=== PATIENT | female | born 1945 | race Hispanic/Latino ===

== ENCOUNTER 2020-10-16 22:02 | Inpatient (IN) | payer OTHER ==
--- OUTSIDE RECORDS SUMMARY | 2020-10-16 22:05 | XMS REPORT | Continuity of Care Document ---
:1945 Author Organization [facility] t Address [address] [place] [place] [address] Care Team Providers Name Role Phone Alis Betts Attending Clinician Unavailable Jarrod CASON, L Attending Clinician Regino Betts Admitting Clinician Unavailable Payers Payer Name Policy Type Policy Number Effective Date Expiration Date S ource Problems This patient has no known problems. Allergies, Adverse Reactions, Alerts Allergy Allergy Status Severity Reaction(s) Onset Inactive Treating Comm ents Source Name Type Date Date Clinician No Known DA Active U 2018-03 [facility] Allergie 05-06 [facility] 00:00: [address] Medications This patient has no known medications. Procedures This patient has no known procedures. Encounters Start End Encounter Admission Attending Care Care Encounter Source Date/Time Date/Time Type Type Clinicians Facility Department ID 2020-09-13 2020-09-13 Outpatient NATHANIEL Betts HUSSEIN DAVILA [id number] [facility] 12:56:00 12:56:00 Alis [id number] [facility] 2019-10-26 2019-10-26 Office EDWIN Garay [phone] [id number] 12:43:36 13:33:[address] [facility] Dialogic [id number] Surgical [id number] Specialti [id number] es [address] [place] Results Test Description Test Time Test Comments Results Result [facility] e Comments - US BRST W AX 2020-09-13 COMP BI 19:03:00 [facility] 1945 Sex: F [place]: [address]: PRE Name: BRANDY MONREAL [facility] : 1945 Age/S: 75/F [address] [facility] Unit #: [id number] Loc: VR.[place], [place] [address] Phys: Alis Betts MD Acct: [id number] Dis Date: Status: PRE CLI PHONE #: [phone] Exam Date: 09/13/2020917 FAX #: [phone] Reason: ABN MAMMO EXAMS: CPT CODE: [id number] [place] [address] - MAMMO DIAG BUTCH CAD BI, - US BRST W AX COMP BI HISTORY: 75-year-old female with recent screening mammogram demonstrating bilateral parenchymal asymmetry. Additional imaging requested.. COMPARISON: April 11, 2020; June 18, 2018; February 08, 2015. TECHNIQUE: Digital 2D and 3-D tomosynthesis projections were obtained. Postprocessing computer aided detection was utilized (enhanced V preview). Bilateral breast ultrasound was performed. FINDINGS : Breast density : The breast parenchyma is heterogeneously dense, which may obscure detection of small masses mammographically. Spot compression views of the left breast in the CC and MLO projections demonstrate normal parenchymal disc tissue with no discrete mass lesion. There is no suspicious microcalcifications. Spot compression views of the retroareolar region of the right breast demonstrate a partially circumscribed 8 mm ovoid mass. There is no associated architectural distortion or microcalcifications. Right breast ultrasound: There is normal parenchymal tissue with no architectural distortion or skin thickening. Within the right breast at the 12 o'clock position is a 0.3 x 0.2 x 0.4 cm cyst, 3 cm from the nipple. At the 11 o'clock position within the right breast is a 0.7 x 0.6 x 0.7 cm cyst, 2 cm from the nipple (likely correlating with the mammographic abnormality). There is no suspicious solid mass lesion. Fatty replaced lymph node is seen within the axilla. Left breast ultrasound: There is normal parenchymal tissue with no architectural distortion or skin thickening. No suspicious solid or cystic mass lesion is seen. There is no significant axillary adenopathy. Mildly prominent duct is noted in the retroareolar region. IMPRESSION: Heterogeneously dense breasts with benign appearing right breast cysts. The nodular asymmetries seen within the left breast likely represents summation of tissue. No mammographic or sonographic evidence of malignancy. Recommend continued annual screening mammography. ACR BI-RADS CATEGORY 2: BENIGN FINDINGS PAGE 1 Signed Report (CONTINUED) [place]: [facility] St: PRE Name: BRANDY MONREAL [facility] : 1945 Age/S: 75/F [address] [facility] Unit #: [id number] Loc: [place], [place] [address] Phys: Alis Betts MD Acct: [id number] Dis Date: Status: PRE CLI PHONE #: [phone] Exam Date: 09/13/2020917 FAX #: [phone] Reason: ABN MAMMO EXAMS: CPT CODE: [id number] [place] [address] <Continued> RECOMMENDATION: Recommend annual screening mammography. [facility] Accreditation FDA Certified Board Certified Radiologists (ARRT) Registered Mammography Technologists NOTE: The patient will receive a written notice about the results of this study and will also receive in writing a separate letter reminding the patient when the next mammography should be scheduled. 1. A negative x-ray report should not delay biopsy if a dominant or clinically suspicious mass is present. 4 to 8% of cancers are not identified by x-ray. 2. A negative report may reinforce clinical impression. 3. Adenosis and dense breast may obscure an underlying neoplasm. 4. False positive results average 6 to 10%. 5. Patients who have dense breasts and other risk factors for breast cancer may benefit from supplemental screening test that can be suggested by your ordering physician (including breast ultrasound and MRI). FO R INTERNAL CODING PURPOSES ONLY RESULT CODE: 2 FOLLOW UP: F at 1903 Reported and signed by: AYDEN LAZAR MD PAGE 2 Signed Report (CONTINUED) [place]: [address]: PRE [facility] 1945 Age/S: 75/F [address] [place] Unit #: [id number] Loc: [place] [address] Phys: Alis Betts MD Acct: [id number] Dis Date: Status: PRE CLI PHONE #: [phone] Exam Date: 09/13/2020917 FAX #: [phone] Reason: ABN MAMMO EXAMS: CPT CODE: [id number] [place] [address] <Continued> Facility ACR Accreditation for Ultrasound - April 2011 CC: Alpesh Zuleta Technologist: Kimberly Ross RT(R)RDMS,RVT Transcribed Date/Time/By: 09/13/2020 (1902) : By: [email or web address] Orig Print D/T: S: 09/13/2020 (1906) PAGE 3 Signed Report - MAMMO DIAG BUTCH 2020-09-13 CAD BI 19:03:00 [facility] : 1945 Sex: F FAX: Alis Moreno [phone] [place]: [address]: PRE Name: BRANDY MONREAL [facility] : 1945 Age/S: 75/F [address] [facility] Unit #: [id number] [place] [address] Phys: Alis Betts MD Acct: [id number] Dis Date: Status: PRE CLI PHONE #: [phone] Exam Date: 09/13/2020829 FAX #: [phone] Reason: ABN MAMMO EXAMS: CPT CODE: [id number] [place] [address] - MAMMO DIAG BUTCH CAD BI, - US BRST W AX COMP BI HISTORY: 75-year-old female with recent screening mammogram demonstrating bilateral parenchymal asymmetry. Additional imaging requested.. COMPARISON: April 11, 2020; June 18, 2018; February 08, 2015. TECHNIQUE: Digital 2D and 3-D tomosynthesis projections were obtained. Postprocessing computer aided detection was utilized (enhanced V preview). Bilateral breast ultrasound was performed. FINDINGS : Breast density : The breast parenchyma is heterogeneously dense, which may obscure detection of small masses mammographically. Spot compression views of the left breast in the CC and MLO projections demonstrate normal parenchymal disc tissue with no discrete mass lesion. There is no suspicious microcalcifications. Spot compression views of the retroareolar region of the right breast demonstrate a partially circumscribed 8 mm ovoid mass. There is no associated architectural distortion or microcalcifications. Right breast ultrasound: There is normal parenchymal tissue with no architectural distortion or skin thickening. Within the right breast at the 12 o'clock position is a 0.3 x 0.2 x 0.4 cm cyst, 3 cm from the nipple. At the 11 o'clock position within the right breast is a 0.7 x 0.6 x 0.7 cm cyst, 2 cm from the nipple (likely correlating with the mammographic abnormality). There is no suspicious solid mass lesion. Fatty replaced lymph node is seen within the axilla. Left breast ultrasound: There is normal parenchymal tissue with no architectural distortion or skin thickening. No suspicious solid or cystic mass lesion is seen. There is no significant axillary adenopathy. Mildly prominent duct is noted in the retroareolar region. IMPRESSION: Heterogeneously dense breasts with benign appearing right breast cysts. The nodular asymmetries seen within the left breast likely represents summation of tissue. No mammographic or sonographic evidence of malignancy. Recommend continued annual screening mammography. ACR BI-RADS CATEGORY 2: BENIGN FINDINGS PAGE 1 Signed Report (CONTINUED) FAX: Alis Moreno [phone] [place]: [address]: PRE Name: BRANDY MONREAL [facility] : 1945 Age/S: 75/F [address] [facility] Unit #: [id number] Loc: [place] [address] Phys: Alis Betts MD Acct: [id number] Dis Date: Status: PRE CLI PHONE #: [phone] Exam Date: 09/13/2020829 FAX #: [phone] Reason: ABN MAMMO EXAMS: CPT CODE: [id number] [place] [address] <Continued> RECOMMENDATION: Recommend annual screening mammography. [facility] Accreditation FDA Certified Board Certified Radiologists (ARRT) Registered Mammography Technologists NOTE: The patient will receive a written notice about the results of this study and will also receive in writing a separate letter reminding the patient when the next mammography should be scheduled. 1. A negative x-ray report should not delay biopsy if a dominant or clinically suspicious mass is present. 4 to 8% of cancers are not identified by x-ray. 2. A negative report may reinforce clinical impression. 3. Adenosis and dense breast may obscure an underlying neoplasm. 4. False positive results average 6 to 10%. 5. Patients who have dense breasts and other risk factors for breast cancer may benefit from supplemental screening test that can be suggested by your ordering physician (including breast ultrasound and MRI). FO R INTERNAL CODING PURPOSES ONLY RESULT CODE: 2 FOLLOW UP: F at 1903 Reported and signed by: AYDEN LAZAR MD CC: Alpesh Zuleta Technologist: Ila LIMA(Roland)(M)(ARRT) Transcribed Date/Time/By: 09/13/2020 (1902) :[email or web address] Orig Print D/T: S: 09/13/2020 (1906) PAGE 2 Signed Report - XR CHEST 2 V 2019-03-05 FAX: Michelle 17:52:00 Hunter Noel [phone] [place]: [address]: REG FAX: Alis Moreno [phone] Name: BRANDY MONREAL [facility] : 1945 Age/S: 74/F [address] [facility] Unit #: [id number] Loc: [place], [place] [address] Phys: Hunter Noel DO Acct: [id number] Dis Date: Status: REG ER PHONE #: [phone] Exam Date: 03/05/2019 1745 FAX #: [phone] Reason: pain s/p fall EXAMS: CPT CODE: [id number] XR CHEST 2 V 07489 - XR CHEST 2 V PROVIDED REASON FOR EXAM: pain s/p fall COMPARISON: None available. FINDINGS: Lungs are clear of focal consolidation. Cardiac silhouette is unremarkable . Pulmonary vasculature is unremarkable . Mildly displaced right fifth through seventh rib fractures. IMPRESSION: No acute cardiopulmonary process. Mildly displaced right third through seventh rib fractures. No pneumothorax. Location: V20 at 1752 Reported and signed by: LUZ QUIÑONEZ MD CC: Hunter Noel DO; Alpesh Zuleta Technologist: Tsering Ochoa, RT(R)(ARRT) Transcribed Date/Time/By: 03/05/2019 (1751) :[email or web address] Orig Print D/T: S: 03/05/2019 (1754) Automated exposure control, iterative reconstruction technique, and/oradjustment of mA and/or kV according to patient's size was utilizedfor optimum radiation dose reduction. PAGE 1 Signed Report - XR RIBS UNI 2 V 2019-03-05 FAX: Mihcelle RT 17:51:00 Hunter Noel [phone] Cam[place]: ER St: REG FAX: Alis Moreno [phone] Name: MONREALBRANDY RENE [facility] : 1945 Age/S: 74/F [address] [facility] Unit #: [id number] Loc: [place], [place] [address] Phys: Hunter Noel DO Acct: [id number] Dis Date: Status: REG ER PHONE #: [phone] Exam Date: 03/05/2019 1745 FAX #: [phone] Reason: pain s/p fall EXAMS: CPT CODE: [id number] XR RIBS UNI 2 [place] [address] - XR RIBS UNI 2 V RT PROVIDED REASON FOR EXAM: pain s/p fall Comparison: None available. FINDINGS: Mildly displaced right fifth through seventh rib fractures. No pneumothorax.. Regional soft tissues are unremarkable. IMPRESSION: Mildly displaced right fifth through seventh rib fractures. Location: V20 at 1751 Reported and signed by: LUZ QUIÑONEZ MD CC: Hunter Noel DO; Alpesh Zuleta Technologist: Tsering Ochoa, RT(R)(ARRT) Transcribed Date/Time/By: 03/05/2019 (1750) :[email or web address] Orig Print D/T: S: 03/05/2019 (1754) Automated exposure control, iterative reconstruction technique, and/oradjustment of mA and/or kV according to patient's size was utilizedfor optimum radiation dose reduction. PAGE 1 Signed Report - MAMMO BUTCH SCR 2018-06-24 FAX: Y CAD BI 14:05:00 Alis Betts [phone] Cam[place]: [address] St: DEP Name: BRANDY MONREAL [facility] : 1945 Age/S: 73/F [address] [facility] Unit #: [id number] Loc: [place] [address] Phys: Alis Betts MD Acct: [id number] Dis Date: Status: DEP CLI PHONE #: [phone] Exam Date: 06/18/201857 FAX #: [phone] Reason: SCREENING EXAMS: CPT CODE: [id number] [place] [address] Location C3 PROCEDURE: BILATERAL SCREENING DIGITAL MAMMOGRAM with CAD/TOMOSYNTHESIS HISTORY: Annual screening COMPARISONS: Mammograms dated 02/08/2015 TECHNIQUE: CC and MLO 3-D tomosynthesis views with Synthetic CC and MLO views. Enhanced V-Preview (Computer Aided Detection) was utilized. FINDINGS: Parenchyma: There are scattered areas of fibroglandular density No evidence of new dominant mass, asymmetry, architectural distortion or suspicious microcalcification. Right subareolar circumscribed mass is stable since 2015 exam, benign. Tiny hyalinized fibroadenoma, upper left breast. CONCLUSION: No mammographic evidence of malignancy in either breast. BIRADS Category 2: Benign RECOMMENDATIONS: Annual screening mammogram recommended * A negative breast imaging report should not delay biopsy if a clinically suspicious mass is present. * The patient was provided with a copy of this report in lay terminology. FO R INTERNAL CODING PURPOSES ONLY RESULT CODE: 2 FOLLOW UP: N PAGE 1 Signed Report (CONTINUED) FAX: Alis Moreno [phone] Cam[place]: [address] St: DEP Name: BRANDY MONREAL [facility] : 1945 Age/S: 73/F [address] [place] Unit #: [id number] Loc: [place], [place] [address] Phys: Alis Betts MD Acct: [id number] Dis Date: Status: DEP CLI PHONE #: [phone] Exam Date: 06/18/2018 0857 FAX #: [phone] Reason: SCREENING EXAMS: CPT CODE: [id number] [place] [address] <Continued> at 1405 Reported and signed by: CHLOÉ HACKETT MD CC: Alpesh Zuleta Technologist: ROBERTO CONNORS, RT(R)(M)(ARRT) Transcribed Date/Time/By: 06/24/2018 (3922) :AshokM Orig Print D/T: S: 06/24/2018 (7294) PAGE 2 Signed Report - MAMMO BUTCH SCR 2018-06-24 FAX: Y CAD BI 14:05:00 Alis Betts [phone] Cam[place]: [address] St: DEP Name: BRANDY MONREAL [facility] : 1945 Age/S: 73/F [address] [facility] Unit #: [id number] Loc: [place] [address] Phys: Alis Betts MD Acct: [id number] Dis Date: Status: DEP CLI PHONE #: [phone] Exam Date: 06/18/2018 0857 FAX #: [phone] Reason: SCREENING EXAMS: CPT CODE: [id number] [place] [address] Location C3 PROCEDURE: BILATERAL SCREENING DIGITAL MAMMOGRAM with CAD/TOMOSYNTHESIS HISTORY: Annual screening COMPARISONS: Mammograms dated 02/08/2015 TECHNIQUE: CC and MLO 3-D tomosynthesis views with Synthetic CC and MLO views. Enhanced V-Preview (Computer Aided Detection) was utilized. FINDINGS: Parenchyma: There are scattered areas of fibroglandular density No evidence of new dominant mass, asymmetry, architectural distortion or suspicious microcalcification. Right subareolar circumscribed mass is stable since 2015 exam, benign. Tiny hyalinized fibroadenoma, upper left breast. CONCLUSION: No mammographic evidence of malignancy in either breast. BIRADS Category 2: Benign RECOMMENDATIONS: Annual screening mammogram recommended * A negative breast imaging report should not delay biopsy if a clinically suspicious mass is present. * The patient was provided with a copy of this report in lay terminology. FO R INTERNAL CODING PURPOSES ONLY RESULT CODE: 2 FOLLOW UP: N PAGE 1 Signed Report (CONTINUED) FAX: Alis Moreno [phone] Cam[place]: [address] St: DEP Name: BRANDY MONREAL [facility] : 1945 Age/S: 73/F [address] [facility] Unit #: [id number] Loc: [place] [address] Phys: Alis Betts MD Acct: [id number] Dis Date: Status: DEP CLI PHONE #: [phone] Exam Date: 06/18/2018 0857 FAX #: [phone] Reason: SCREENING EXAMS: CPT CODE: [id number] [place] [address] <Continued> at 140 Reported and signed by: CHLOÉ HACKETT MD CC: Alpesh Zuleta Technologist: ROBERTO CONNORS, RT(R)(M)(ARRT) Transcribed Date/Time/By: 06/24/2018 (2316) :Charlene Orig Print D/T: S: 06/24/2018 (0282) PAGE 2 Signed Report
[2020-10-16] MEDS ORDERED: ONDANSETRON 4 MG/2 ML VIAL ONE (23:50)
[2020-10-16] MEDS ORDERED: DICYCLOMINE HCL 20 MG/2 ML AMP IM ONE (23:50)
[2020-10-17 00:02] LABS: Hematocrit 42.9 % (36.0-45.0)
[2020-10-17 00:03] LABS: Absolute Lymphocytes (CBC) 0.5 K/uL (0.7-4.9); Basophils % 0.2 % (0-1.3); Lymphocytes % 4.7 % (15.3-44.8); MPV 10.1 fL (7.6-11.3)
[2020-10-17 00:04] LABS: ALT/SGPT 19 U/L (12-78); AST/SGOT 16 U/L (15-37); Albumin 4.2 g/dL (3.4-5.0); Alkaline Phosphatase 81 U/L (45-117); BUN Blood Urea Nitrogen 17 mg/dL (7-18); Bicarbonate 23 mmol/L (21-32); Bilirubin Direct 0.2 mg/dL (0-0.2); Bilirubin Total 0.7 mg/dL (0.2-1.0); Glucose Level 266 mg/dL (74-106); Lipase 93 U/L (73-393); Potassium 4.3 mmol/L (3.5-5.1); Protein, Total 7.8 g/dL (6.4-8.2); Sodium Level 139 mmol/L (136-145)
[2020-10-17 00:55] LABS: Blood Morphology Comment NOT SEEN (NOT SEEN); Platelet Estimate ADEQ
[2020-10-17] MEDS ORDERED: MORPHINE 4 MG/ML SYR ONE ×2 (01:02→03:27)
--- NOTE | 2020-10-17 02:05 | EDPHYS ---
Physician Documentation [facility] Name: Kala Pacheco Age: 75 yrs Sex: Female : 1945 Arrival Date: 10/16/2020 Time: 22:05 Bed 28 Private MD: ERASMO Physician Amarjit Crocker HPI: 10/17 00:03 This 75 yrs old Female presents to ER via EMS with complaints of jr8 Nausea/Vomiting/Diarrhea. 00:03 The patient presents to the emergency department with nausea, vomiting, abdominal pain, jr8 of the right upper quadrant and left upper quadrant, described as crampy. Onset: The symptoms/episode began/occurred acutely, today. Possible causes: unknown. The symptoms are aggravated by nothing. The symptoms are alleviated by nothing. Associated signs and symptoms: The patient has no apparent associated signs or symptoms. Severity of symptoms: At their worst the symptoms were moderate in the emergency department the symptoms are unchanged. The patient has not experienced similar symptoms in the past. The patient has not recently seen a physician. Historical: - Allergies: 10/16 22:37 No Known Allergies; kg - Home Meds: 22:36 acarbose 25 mg Oral tab [Active]; Bydureon BCise 2 mg/0.85 mL subcutaneous atIn every 7 kg days [Active]; Cymbalta Oral [Active]; losartan Oral [Active]; metformin 500 mg Oral tab [Active]; rosuvastatin Oral [Active]; - PMHx: 22:36 Hypercholesterolemia; Hypertensive disorder; Diabetes mellitus; Depressive disorder; kg - PSHx: 22:36 None; kg - Immunization history:: Adult Immunizations up to date, Client reports receiving the 2nd dose of the Covid vaccine, Date received: July 26, 2020 [facility] Client reports receiving the 1st dose of the Covid vaccine, June 28, 2020 [facility]. - Social history:: Smoking status: Patient denies any tobacco usage or history of. ROS: 10/17 00:03 Eyes: Negative for injury, pain, redness, and discharge, ENT: Negative for injury, jr8 pain, and discharge, Neck: Negative for injury, pain, and swelling, Cardiovascular: Negative for chest pain, palpitations, and edema, Respiratory: Negative for shortness of breath, cough, wheezing, and pleuritic chest pain, Back: Negative for injury and pain, MS/Extremity: Negative for injury and deformity, Skin: Negative for injury, rash, and discoloration, Neuro: Negative for headache, weakness, numbness, tingling, and seizure. Abdomen/GI: Positive for nausea, vomiting, and diarrhea, abdominal cramps. Exam: 00:03 ENT: Nares patent. No nasal discharge, no septal abnormalities noted. Tympanic jr8 membranes are normal and external auditory canals are clear. Oropharynx with no redness, swelling, or masses, exudates, or evidence of obstruction, uvula midline. Mucous membranes moist. Cardiovascular: Regular rate and rhythm with a normal S1 and S2. No gallops, murmurs, or rubs. Normal PMI, no JVD. No pulse deficits. Respiratory: Lungs have equal breath sounds bilaterally, clear to auscultation and percussion. No rales, rhonchi or wheezes noted. No increased work of breathing, no retractions or nasal flaring. Back: No spinal tenderness. No costovertebral tenderness. Full range of motion. Skin: Warm, dry with normal turgor. Normal color with no rashes, no lesions, and no evidence of cellulitis. MS/ Extremity: Pulses equal, no cyanosis. Neurovascular intact. Full, normal range of motion. Neuro: Awake and alert, GCS 15, oriented to person, place, time, and situation. Cranial nerves II-XII grossly intact. Motor strength 5/5 in all extremities. Sensory grossly intact. 00:03 Constitutional: The patient appears alert, awake, uncomfortable. 00:03 Abdomen/GI: Inspection: abdomen appears normal, Bowel sounds: active, all quadrants, Palpation: soft, in all quadrants, moderate abdominal tenderness, in the midd upper abdomen and left upper quadrant, voluntary guarding, is not appreciated, involuntary guarding, is not appreciated, no appreciated organomegaly, Indicators: McBurney's point is not tender, Hall's sign is negative, Rovsing's sign is negative, Liver: tenderness, is not appreciated. Vital Signs: 10/16 22:28 BP 128 / 57; Pulse 64; Resp 20; Temp 97.8(O); Pulse Ox 100% ; Weight 65.77 kg (R); kg Height 5 ft. 0 in. (152.40 cm) (R); Pain 12/16; 10/17 01:14 Pulse 78; Resp 18; Pulse Ox 94% on R/A; lp1 03:17 BP 118 / 63; Pulse 92; Resp 18; Pulse Ox 98% on R/A; lp1 10/16 22:28 Body Mass Index 28.32 (65.77 kg, 152.40 cm) kg MDM: 10/16 23:28 Patient medically screened. 8 10/17 02:02 Data reviewed: vital signs, nurses notes, lab test result(s), radiologic studies, CT jr8 scan. Data interpreted: Pulse oximetry: on room air is 95 %. Interpretation: normal. Counseling: I had a detailed discussion with the patient and/or guardian regarding: the historical points, exam findings, and any diagnostic results supporting the discharge/admit diagnosis, lab results, radiology results, the need for further work-up and treatment in the hospital. 10/16 22:40 Order name: Basic Metabolic Panel; Complete Time: 00:05 kg 10/16 22:40 Order name: CBC with Diff; Complete Time: 01:00 kg 10/16 22:40 Order name: Hepatic Function; Complete Time: 00:05 kg 10/16 22:40 Order name: Lipase; Complete Time: 00:05 kg 10/17 00:16 Order name: Manual Differential; Complete Time: 01:00 EDMS 10/17 02:02 Order name: COVID-19 : Document "Date of Symptom Onset" if Symptomatic. [facility] 10/17 04:49 Order name: SARS-COV-2 RT PCR; Complete Time: 15:10 EDMS 10/17 06:51 Order name: Comprehensive Metabolic Panel; Complete Time: 15:10 EDMS 10/17 06:51 Order name: Phosphorus; Complete Time: 15:10 EDMS 10/17 06:51 Order name: Lipid Profile; Complete Time: 15:10 EDMS 10/17 06:51 Order name: T4 Free; Complete Time: 15:10 EDMS 10/17 06:51 Order name: Magnesium; Complete Time: 15:10 EDMS 10/17 06:51 Order name: Thyroid Stimulating Hormone; Complete Time: 15:10 EDMS 10/17 06:52 Order name: Lactate; Complete Time: 15:10 EDMS 10/16 22:40 Order name: IV Saline Lock; Complete Time: 23:39 kg 10/16 22:40 Order name: Labs collected and sent; Complete Time: 23:39 kg 10/16 23:29 Order name: CT Abd/Pelvis - IV Contrast Only; Complete Time: 15:10 jr8 10/17 01:59 Order name: NG Tube; Complete Time: 03:18 jr8 10/17 02:17 Order name: CONS Physician Consult EDMS 10/17 07:29 Order name: Protime (+INR); Complete Time: 15:10 EDMS 10/17 07:29 Order name: PTT, Activated Partial Thromb; Complete Time: 15:10 EDMS 10/17 08:55 Order name: Glucose, Ancillary Testing; Complete Time: 15:10 EDMS 10/17 09:39 Order name: Lactate Sepsis 2 HR Follow-up; Complete Time: 15:10 EDMS 10/17 11:08 Order name: RAD; Complete Time: 15:10 EDMS 10/17 12:49 Order name: Glucose, Ancillary Testing; Complete Time: 15:10 EDMS 10/17 17:14 Order name: Glucose, Ancillary Testing; Complete Time: 17:29 EDMS Administered Medications: 10/16 23:42 Drug: Dicyclomine 20 mg Route: IM; Site: right gluteus; lp1 23:45 Follow up: Response: No adverse reaction lp1 23:42 Drug: Zofran (Ondansetron) 4 mg Route: IVP; Site: left antecubital; lp1 23:45 Follow up: Response: No adverse reaction 1 10/17 00:50 Drug: morphine 4 mg Route: IVP; Site: left antecubital; lp1 01:15 Follow up: Response: No adverse reaction lp1 03:18 Drug: morphine 4 mg Route: IVP; Site: left antecubital; lp1 Disposition: 10/18 07:12 Co-signature as Attending Physician, Amarjit Crocker MD I agree with the assessment and lori plan of care. Disposition Summary: 10/17/20 02:04 Hospitalization Ordered Hospitalization Status: Inpatient Admission jr8 Provider: Bg Sanderson Condition: Stable jr8 Problem: new jr8 Symptoms: have improved jr8 Bed/Room Type: Standard [facility] Location: Telemetry/MedSurg (Inpatient)(10/17/20 15:49) dw Room Assignment: 230(10/17/20 15:49) dw Diagnosis - Small Bowel Obstruction jr8 Forms: - Medication Reconciliation Form jr8 - SBAR form jr8 Signatures: Dispatcher [employer] EDJena Batista Diana, RN RN Amarjit Napier MD MD cha Pena, Laura, RN RN lp1 Avel Barth PA PA jr8 Nikki Arredondo RN RN kg Corrections: (The following items were deleted from the chart) 10/16 22:38 22:36 PMHx: depressive disorder; kg kg 22:38 22:36 PMHx: diabetes mellitus; kg kg 22:38 22:36 PMHx: Hypercholesterolemia; kg kg 22:38 22:36 PMHx: Hypertensive disorder; kg kg 22:38 22:36 PMHx: None; kg kg 10/17 07:07 02:04 Telemetry/MedSurg (Inpatient) jr8 bd 07:07 02:04 jr8 bd 15:49 07:07 [facility] ER HOLD bd dw 15:49 07:07 ERHOLD- bd dw
--- NOTE | 2020-10-17 02:05 | ER ---
Nurse's Notes [facility] Name: Kala Pacheco Age: 75 yrs Sex: Female : 1945 Arrival Date: 10/16/2020 Time: 22:05 Bed 28 Private MD: Diagnosis: Small Bowel Obstruction Presentation: 10/16 22:28 Chief complaint: Patient states: Nausea, vomiting starting at 0900. Pt stated, " I kg think its the cheese I ate this morning was not good.". Coronavirus screen: Client denies travel out of the [place] in the last 14 days. At this time, unable to obtain information related to travel outside the [place] Client presents with at least one sign or symptom that may indicate coronavirus-19. Standard/surgical mask placed on the client. Provider contacted for isolation considerations. Ebola Screen: Patient negative for fever greater than or equal to 101.5 degrees Fahrenheit, and additional compatible Ebola Virus Disease symptoms Patient denies exposure to infectious person. Patient denies travel to an Ebola-affected area in the 21 days before illness onset. Initial Sepsis Screen: Does the patient meet any 2 criteria? No. Patient's initial sepsis screen is negative. Does the patient have a suspected source of infection? No. Patient's initial sepsis screen is negative. Risk Assessment: Do you want to hurt yourself or someone else? Patient reports no desire to harm self or others. Onset of symptoms was October 16, 2020 at 09:00. 22:28 Method Of Arrival: EMS: [facility] kg 22:28 Acuity: RADHA 3 kg Triage Assessment: 22:37 General: Appears uncomfortable, Behavior is calm, cooperative, appropriate for age, kg quiet. Pain: Complains of pain in left lower quadrant and abdomen diffusely. GI: Reports nausea, vomiting. Historical: - Allergies: 22:37 No Known Allergies; kg - Home Meds: 22:36 acarbose 25 mg Oral tab [Active]; Bydureon BCise 2 mg/0.85 mL subcutaneous atIn every 7 kg days [Active]; Cymbalta Oral [Active]; losartan Oral [Active]; metformin 500 mg Oral tab [Active]; rosuvastatin Oral [Active]; - PMHx: 22:36 Hypercholesterolemia; Hypertensive disorder; Diabetes mellitus; Depressive disorder; kg - PSHx: 22:36 None; kg - Immunization history:: Adult Immunizations up to date, Client reports receiving the 2nd dose of the Covid vaccine, Date received: July 26, 2020 [facility] Client reports receiving the 1st dose of the Covid vaccine, June 28, 2020 [facility]. - Social history:: Smoking status: Patient denies any tobacco usage or history of. Screenin:39 Abuse screen: Denies threats or abuse. Denies injuries from another. Nutritional kg screening: No deficits noted. Tuberculosis screening: No symptoms or risk factors identified. Fall Risk None identified. Assessment: 23:45 GI: Abdomen is non-distended. lp1 10/17 02:30 Reassessment: Patient vomiting, Provider notified; Reports pain to general abdomen 10/16.lp1 03:19 Reassessment: Patient is alert, oriented x 3, equal unlabored respirations, skin lp1 warm/dry/pink. Reports some relief after NG tube insertion Patient states symptoms have improved. Vital Signs: 10/16 22:28 BP 128 / 57; Pulse 64; Resp 20; Temp 97.8(O); Pulse Ox 100% ; Weight 65.77 kg (R); kg Height 5 ft. 0 in. (152.40 cm) (R); Pain 12/16; 10/17 01:14 Pulse 78; Resp 18; Pulse Ox 94% on R/A; lp1 03:17 BP 118 / 63; Pulse 92; Resp 18; Pulse Ox 98% on R/A; lp1 10/16 22:28 Body Mass Index 28.32 (65.77 kg, 152.40 cm) kg ED Course: 10/16 22:05 Patient arrived in ED. mw2 22:31 Triage completed. kg 22:37 Arm band placed on left wrist. kg 22:39 Patient has correct armband on for positive identification. kg 23:13 Elis Jackson, LOLA is Primary Nurse. lp1 23:28 Avel Barth PA is PHCP. jr8 23:28 Amarjit Crocker MD is Attending Physician. jr8 23:35 Inserted saline lock: 22 gauge in left antecubital area, using aseptic technique. Blood ds4 collected. 23:45 No apparent distress. lp1 23:45 No provider procedures requiring assistance completed. lp1 10/17 00:53 CT Abd/Pelvis - IV Contrast Only In Process Unspecified. EDMS 02:03 Bg Sanderson is Hospitalizing Provider. jr8 03:00 NGT: inserted 14 Fr. via right nare. verified placement of air over stomach, verified lp1 return of gastric contents, to intermittent suction. 03:18 Patient admitted, IV remains in place. lp1 03:26 COVID swab sent to lab. lp1 15:04 Primary Nurse role handed off by Elis Jackson RN bd Administered Medications: 10/16 23:42 Drug: Dicyclomine 20 mg Route: IM; Site: right gluteus; lp1 23:45 Follow up: Response: No adverse reaction lp1 23:42 Drug: Zofran (Ondansetron) 4 mg Route: IVP; Site: left antecubital; lp1 23:45 Follow up: Response: No adverse reaction lp1 10/17 00:50 Drug: morphine 4 mg Route: IVP; Site: left antecubital; lp1 01:15 Follow up: Response: No adverse reaction lp1 03:18 Drug: morphine 4 mg Route: IVP; Site: left antecubital; lp1 Outcome: 02:04 Decision to Hospitalize by Provider. jr8 03:18 Admitted to ER Hold. Please see [facility] for further documentation. lp1 03:18 Condition: stable 03:18 Instructed on the need for admit. 17:56 Patient left the ED. ld1 Signatures: Dispatcher [employer] EDMS DudonitaJena bd Elis Jackson, RN RN lp1 Avel Barth PA PA jr8 Collin Gaytan ds4 Qasim Jennings mw2 Cynthia Gonzalez RN RN ld1 Nikki Arredondo RN RN kg Corrections: (The following items were deleted from the chart) 10/16 22:38 22:36 PMHx: depressive disorder; kg kg 22:38 22:36 PMHx: diabetes mellitus; kg kg 22:38 22:36 PMHx: Hypercholesterolemia; kg kg 22:38 22:36 PMHx: Hypertensive disorder; kg kg 22:38 22:36 PMHx: None; kg kg
--- NOTE | 2020-10-17 03:31 | P.HP ---
Certification for Inpatient Patient admitted to: Inpatient With expected LOS: <2 Midnights Patient will require the following post-hospital care: None Practitioner: I am a practitioner with admitting privileges, knowledge of patient current condition, hospital course, and medical plan of care. Services: Services provided to patient in accordance with Admission requirements found in Title 42 Section 412.3 of the Code of Federal Regulations Patient History Date of Service: 10/17/20 Primary Care Provider: Alpesh Reason for admission: SBO History of Present Illness: Ms. Pacheco is a 75 yo F with HTN, HLD, DM who presents with sharp, crampy abdominal pain and nausea, vomiting, and diarrhea beginning yesterday morning. She says she ate yesterday AM, and had 3 BM yesterday. She reports constant pain, and feels like she wants to pass out from the pain. Has had C section and hysterectomy in the past. WBC 11.6, Glu 266. NG tube placed in ED. CT scan shows SBO. - Past Medical/Surgical History Diabetic: Yes -: DM -: HTN -: HLD -: c section -: hysterectomy - Family History Family History: Reviewed- Non-Contributory - Social History Smoking Status: Never smoker Alcohol use: No CD- Drugs: No Caffeine use: No Place of Residence: Home Review of Systems 10-point ROS is otherwise unremarkable Gastrointestinal: Nausea, Vomiting, Abdominal Pain, Diarrhea Physical Examination - Physical Exam General: Alert, In no apparent distress HEENT: Atraumatic, PERRLA, Mucous membr. moist/pink, EOMI, Sclerae nonicteric Neck: Supple, 2+ carotid pulse no bruit, No LAD, Without JVD or thyroid abnormality Respiratory: Clear to auscultation bilaterally, Normal air movement Cardiovascular: Regular rate/rhythm, Normal S1 S2 Gastrointestinal: Hypoactive, No ascites, No masses, No rebound, No guarding, Distended, Tenderness Musculoskeletal: No tenderness Integumentary: No rashes Neurological: Normal speech, Normal strength at 5/5 x4 extr, Normal tone, Normal affect Lymphatics: No axilla or inguinal lymphadenopathy - Studies Laboratory Data (last 24 hrs) 10/16/20 23:35: WBC 11.60 H, Hgb 13.9, Hct 42.9, Plt Count 173 10/16/20 23:35: Sodium 139, Potassium 4.3, BUN 17, Creatinine 0.58, Glucose 266 H, Total Bilirubin 0.7, AST 16, ALT 19, Alkaline Phosphatase 81, Lipase 93 Assessment and Plan - Problems (Diagnosis) (1) SBO (small bowel obstruction) Current Visit: Yes Status: Acute (2) HTN (hypertension) Current Visit: Yes Status: Chronic Qualifiers: Hypertension type: primary hypertension Qualified Code(s): I10 - Essential (primary) hypertension (3) HLD (hyperlipidemia) Current Visit: Yes Status: Chronic Qualifiers: Hyperlipidemia type: unspecified Qualified Code(s): E78.5 - Hyperlipidemia, unspecified (4) T2DM (type 2 diabetes mellitus) Current Visit: Yes Status: Chronic 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 Diabetes mellitus complication status: without complication Qualified Code(s): E11.9 - Type 2 diabetes mellitus without complications - Plan surgery consulted NG tube placed continue IVF hydration, IV antibiotics, pain management as needed repeat AM labs BP stable, continue to monitor sliding scale insulin, Accuchecks DVT ppx Discharge Plan: Home Plan to discharge in: 48 Hours - Advance Directives Does patient have a Living Will: No Does patient have a Durable POA for Healthcare: No - Code Status/Comfort Care Code Status Assessed: Yes (full code ) Critical Care: No Time Spent Managing Pts Care (In Minutes): 70
[2020-10-17] MEDS ORDERED: MORPHINE 4 MG/ML SYR IV PRN (04:56)
[2020-10-17] MEDS ORDERED: ACETAMINOPHEN 500 MG TAB PO PRN (04:56)
[2020-10-17] MEDS: METRONIDAZOLE 500mg IVPB 500 MG/100 ML BAG IV SCH ×4 (04:56→21:07)
[2020-10-17] MEDS: NA CHLORIDE 0.9% 1,000 ML IV SCH ×3 (04:56→21:06)
[2020-10-17] MEDS ORDERED: CEFTRIAXONE 1 GM/NS 50 ML 1 GM/50 ML BAG IV SCH (04:56)
[2020-10-17] MEDS ORDERED: ONDANSETRON 4 MG/2 ML VIAL IV PRN (04:56)
[2020-10-17] MEDS ORDERED: CEFTRIAXONE 1000 MG/VIAL ONE (05:39)
[2020-10-17] MEDS ORDERED: NA CHLORIDE 0.9% 1,000 ML ONE (05:39)
[2020-10-17] MEDS ORDERED: METRONIDAZOLE 500mg IVPB 500 MG/100 ML BAG IV ONE ×2 (05:39→15:27)
[2020-10-17 06:45] LABS: Protime INR 1.04
[2020-10-17 06:50] LABS: Albumin 3.3 g/dL (3.4-5.0); Bilirubin Total 0.4 mg/dL (0.2-1.0); Magnesium 2.3 mg/dL (1.8-2.4); Potassium 3.5 mmol/L (3.5-5.1); Protein, Total 6.8 g/dL (6.4-8.2); Thyroid Stimulating Hormone 2.48 uIU/mL (0.360-3.740)
[2020-10-17] MEDS: INSULIN -REGULAR HUMAN 50 UNIT/0.5 ML ML SQ SCH ×4 (07:30→21:07)
--- NOTE | 2020-10-17 11:07 | RAD REPORT ---
EXAM DESCRIPTION: RAD - Abdomen W Erect - 10/17/2020 10:51 am CLINICAL HISTORY: SBO COMPARISON: Abdomen Pelvis W Contrast dated 10/17/2020 FINDINGS: The NG tube tip terminates overlying the stomach. The side-port is at the distal esophagus . The bowel gas pattern is nonobstructive. The lung bases are clear. No fractures are identified. IMPRESSION: The NG tube tip overlies the stomach however the side port is in the distal esophagus. S uggest advancing 5 centimeter. The bowel gas pattern is nonobstructive.
--- NOTE | 2020-10-17 11:22 | RAD REPORT ---
EXAM DESCRIPTION: CT - Abdomen Pelvis W Contrast - 10/17/2020 6:08 am COMPARISON: None CLINICAL HISTORY: Abdominal pain CLINICAL HISTORY: Multiple helical axial images were obtained through the abdomen and pelvis using i ntravenous contrast. Coronal and sagittal reformatted images were obtained. All CT scans at this facility use dose modulation, iterative reconstruction, and/or weight-based dosi ng when appropriate to reduce radiation dose to as low as reasonably achievable. Findings: Lung bases: There are a few tiny nodular densities in the right lung base measuring up to 4 mm. There is a small hiatal hernia. Liver: Homogenous attenuation is noted. Gallbladder/biliary: Appears unremarkable Pancreas: There is a 0.8 cm hypodense, cystic structure in the pancreatic body (series 501, image 23) . No evidence of ductal enlargement. Spleen: Appears unremarkable. No splenomegaly. Adrenals: Unremarkable. Kidneys and ureters: No evidence of hydronephrosis. Normal enhancement. There is a 1.3 cm cyst in t he midpole of the right kidney. Subcentimeter hypodensity in the upper pole of the right kidney is pr esent too small to characterize. Bladder: Unremarkable. Pelvic organs: Post hysterectomy changes are present. Bowel: Multiple dilated loops of small bowel are demonstrated. There is abrupt transition from dilate d and decompressed small bowel in the right anterior lower abdomen (series 501, image 62) compatible with small bowel obstruction. Colonic diverticula are present. No bowel wall thickening. Appendix a ppears unremarkable. Vasculature: Aortoiliac atherosclerosis is present. Peritoneum: No free air. There is trace ascites. Lymph nodes: Unremarkable. Soft tissues: There is a small fat-containing umbilical hernia. Bones: Unremarkable. IMPRESSION: 1. Findings compatible with small bowel obstruction with transition point in the right l ower abdomen. 2. Small 0.8 cm pancreatic cystic structure. Follow-up pancreatic protocol MRI recommended in two yea rs using ACR recommendations. 3. Colonic diverticulosis. 4. Few small pulmonary nodules in the bases measuring up to 4 mm. No routine follow-up imaging is rec ommended. These guidelines do not apply to immunocompromised patients and patients with cancer. Follo w up in patients with significant comorbidities as clinically warranted. For lung cancer screening, a dhere to Lung-RADS guidelines. Reference: Radiology. 2017; 284(1):228-43. Electronically signed by: Gage Villalobos MD 10/17/2020 1:27 AM CDT Due to temporary technical issues with the PACS/Fluency reporting system, reports are being signed by the in house radiologist without review as a courtesy to ensure prompt reporting. The interpreting r adiologist is fully responsible for the content of the report.
[2020-10-17] MEDS: CEFTRIAXONE/SWI 1gm 1 GM/10 ML SYR IVP SCH (11:23)
--- NOTE | 2020-10-17 11:36 | CON ---
Date of Consultation: 10/17/2020 Reason For Consultation: Small bowel obstruction. History Of Present Illness: The patient is a 75-year-old female, who comes in with a 2-day history o f sharp, crampy abdominal pain associated with nausea, vomiting and diarrhea. She still had a bowel movement this morning, passed some gas. She had some fluid yesterday and pain is constant. No sore throat, runny nose, cough, headaches, or dizziness. No chest pain. No fever or chills. No dysuria or hematuria. Review of Systems: Otherwise unremarkable. Past Medical History: Significant for diabetes, hypertension, hyperlipidemia. Past Surgical History: and hysterectomy. Allergies: NO ALLERGIES. Social History: The patient does not smoke. Does not drink alcohol. Family History: Noncontributory. Physical Examination: Vital Signs: Stable. She is afebrile. General: She is awake, alert, and oriented x3. Head and Neck: Cranial nerves 2 through 12 are grossly within normal limits. No neck masses. No JV D. Throat clear. Neck is supple. Chest: Clear. Heart: S1 and S2. Abdomen: Soft, slightly distended. Hypoactive bowel sounds. Minimal tenderness. No rebound, rigid ity, or guarding. No abdominal wall hernia appreciated. Extremities: Adequately perfused. Nontender. Neuro: Nonfocal. Laboratory Data: CT of the abdomen and pelvis reviewed with the radiologist and the patient. Marvin mccall, she has an uncomplicated small bowel obstruction with a transition point near the right lower abdomen. White count is 11.6 with a left shift. INR is 1.04. Chemistry reviewed. Lactic acid was 5.8, it is 3.4 now. Assessment: A 75-year-old female with small bowel obstruction, appears to be incomplete. Recommendations: Continue n.p.o., NG tube, IV fluid, IV antibiotics. We will repeat the abdominal x -ray, serial abdominal exams. Should she not improve with conservative measures, she may need surgic al intervention. /MODL Voice ID: [id number] Report ID: [id number]
[2020-10-17] MEDS ORDERED: CEFTRIAXONE/SWI 1gm 1 GM/10 ML SYR ONE (11:43)
[2020-10-17] MEDS ORDERED: INSULIN -REGULAR HUMAN 50 UNIT/0.5 ML ML ONE ×2 (13:38→17:36)
[2020-10-17 13:58] VITALS: BMI 28.3
--- NOTE | 2020-10-17 18:19 | P.PN ---
Date of Service: 10/17/20 Patient seen and examined. She states she feels much better. She has diarrhea and passing gas. NG tube with minimal output. KUB shows nonobstructive pattern. General surgery input appreciated. Ice chips today. NG tube removal tomorrow per Dr. Rudd. Supportive measures. Empiric antibiotics.
[2020-10-18 03:31] LABS: Urine Appearance CLEAR (Clear); Urine Blood NEGATIVE (Negative); Urine Color DK YELLOW (Yellow); Urine Glucose NEGATIVE (Negative); Urine Protein TRACE (Negative); Urine Specific Gravity 1.025 (1.005-1.030); Urine Urobilinogen 0.2 mg/dL (0.2-1.0)
[2020-10-18 03:35] LABS: Urine Microscopic Reflex ORDER UMIC
[2020-10-18 04:23] LABS: Urine Bilirubin NEGATIVE (Negative)
[2020-10-18 05:02] LABS: Urine Bacteria >50 /HPF (<20); Urine RBC <5 /HPF (NONE SEEN); Urine Urothelial Cells <5 /HPF (NONE SEEN)
[2020-10-18] MEDS: METRONIDAZOLE 500mg IVPB 500 MG/100 ML BAG IV SCH ×2 (05:16→15:49)
[2020-10-18] MEDS: CEFTRIAXONE/SWI 1gm 1 GM/10 ML SYR IVP SCH (05:16)
[2020-10-18 06:49] LABS: ALT/SGPT 12 U/L (12-78); AST/SGOT 14 U/L (15-37); Albumin 2.6 g/dL (3.4-5.0); Alkaline Phosphatase 45 U/L (45-117); BUN Blood Urea Nitrogen 28 mg/dL (7-18); Bicarbonate 27 mmol/L (21-32); Bilirubin Total 0.5 mg/dL (0.2-1.0); Glucose Level 118 mg/dL (74-106); Magnesium 2.1 mg/dL (1.8-2.4); Phosphorus 1.5 mg/dL (2.5-4.9); Potassium 3.6 mmol/L (3.5-5.1); Protein, Total 5.4 g/dL (6.4-8.2); Sodium Level 139 mmol/L (136-145)
[2020-10-18] MEDS: NA CHLORIDE 0.9% 1,000 ML IV SCH (06:49)
--- NOTE | 2020-10-18 07:27 | RAD REPORT ---
EXAM DESCRIPTION: RAD - Abdomen 1 View (KUB) - 10/18/2020 7:02 am CLINICAL HISTORY: SBO COMPARISON: <Comparisons> FINDINGS: There is gas present within the colon. Mild central small bowel dilatation measuring up to 3.9 centimeters. There is increased small bowel air compared with 10/17/2020. The NG tube terminates overlying the proximal stomach. No acute osseous abnormality.Visualized lungs are unremarkable.No ab normal calcifications. IMPRESSION: Small bowel dilatation is similar to the CT from 10/17/2020. There is increased gas in t he small bowel compared with yesterday's radiograph. Colonic gas is noted. Though a small bowel obstr uction likely remains, it may be partial.
[2020-10-18] MEDS: INSULIN -REGULAR HUMAN 50 UNIT/0.5 ML ML SQ SCH ×3 (07:30→16:30)
[2020-10-18 11:21] VITALS: O2SAT 95
[2020-10-18 16:22] VITALS: BP 139/62; TEMP 98.6
--- NOTE | 2020-10-18 18:25 | PN ---
Date of Progress Note: 10/18/2020 Subjective: The patient is awake, alert. Having bowel movements, passing gas. Tolerating liquids. Earlier today, NG tube was discontinued and full liquids were advanced too, and she tolerated that w ithout any problems. No pain. No nausea. No vomiting. Objective: Vital signs stable, afebrile. Laboratory Data: X-ray reviewed, nonobstructive pattern. Assessment: Small bowel obstruction, resolved. Recommendations: Advance diet to GI soft if tolerates. The patient is cleared from Surgery for disc harge. No need for acute surgical intervention at this time. /MODL Voice ID: [id number] Report ID: [id number]
--- NOTE | 2020-10-18 18:34 | P.DS ---
Admission Date: 10/17/20 Discharge Date: 10/18/20 Primary Care Provider: Alpesh Disposition: ROUTINE DISCHARGE Discharge Condition: FAIR Reason for Admission: SBO Consultations: General Surgery-Dr. Rudd. - Problems (1) SBO (small bowel obstruction) Status: Acute (2) HTN (hypertension) Status: Chronic Qualifiers: Hypertension type: primary hypertension Qualified Code(s): I10 - Essential (primary) hypertension (3) T2DM (type 2 diabetes mellitus) Status: Chronic Qualifiers: Diabetes mellitus long term care pharmacist insulin use: unspecified long term care pharmacist insulin use status Diabetes mellitus complication status: without complication Qualified Code(s): E11.9 - Type 2 diabetes mellitus without complications Brief History of Present Illness: 75 yo woman with HTN, HLD, DM presented with sharp, crampy abdominal pain and nausea, vomiting, and diarrhea. CT abdomen and pelvis done in the emergency department showed bowel dilatation consistent with small-bowel obstruction. NG tube placed in ED and patient admitted for further management. Hospital Course: Patient admitted to the medical floor and started on supportive measures with IV fluid. She was also treated with IV antibiotics. She was seen in consultation by general surgery-Dr. Rudd who recommended medical management. NG-tube had minimal output. Patient's symptoms resolved during the hospital stay. NG-tube was removed. She tolerated diet advancement from liquid diet to soft diet. She also had multiple bowel movements and flatus. Patient deemed stable for discharge per Surgery today. Vital Signs/Physical Exam: Temp Pulse Resp BP Pulse Ox 98.6 F 77 16 139/62 98 10/18/20 16:00 10/18/20 16:00 10/18/20 16:00 10/18/20 16:00 10/18/20 16:00 General: Alert, In no apparent distress, Oriented x3 HEENT: Mucous membr. moist/pink Respiratory: Clear to auscultation bilaterally, Normal air movement Cardiovascular: No edema, Regular rate/rhythm, Normal S1 S2 Gastrointestinal: Normal bowel sounds, Soft and benign, Non-distended, No tenderness Musculoskeletal: No swelling Integumentary: No rashes Neurological: Normal strength at 5/5 x4 extr Laboratory Data at Discharge: WBC 11.60 K/uL (4.3-10.9) H 10/16/20 23:35 Hgb 13.9 g/dL (12.0-15.0) 10/16/20 23:35 Hct 42.9 % (36.0-45.0) 10/16/20 23:35 Plt Count 173 K/uL (152-406) 10/16/20 23:35 PT 12.0 SECONDS (9.5-12.5) 10/17/20 06:12 INR 1.04 10/17/20 06:12 APTT 26.8 SECONDS (24.3-36.9) 10/17/20 06:12 Sodium 139 mmol/L (136-145) 10/18/20 06:11 Potassium 3.6 mmol/L (3.5-5.1) 10/18/20 06:11 BUN 28 mg/dL (7-18) H 10/18/20 06:11 Creatinine 0.48 mg/dL (0.55-1.3) L 10/18/20 06:11 Glucose 118 mg/dL (74-106) H 10/18/20 06:11 Phosphorus 1.5 mg/dL (2.5-4.9) L D 10/18/20 06:11 Magnesium 2.1 mg/dL (1.8-2.4) 10/18/20 06:11 Total Bilirubin 0.5 mg/dL (0.2-1.0) 10/18/20 06:11 AST 14 U/L (15-37) L 10/18/20 06:11 ALT 12 U/L (12-78) 10/18/20 06:11 Alkaline Phosphatase 45 U/L (45-117) 10/18/20 06:11 Triglycerides 143 mg/dL (<150) 10/17/20 06:12 Cholesterol 137 mg/dL (<200) 10/17/20 06:12 HDL Cholesterol 51 mg/dL (40-60) 10/17/20 06:12 Cholesterol/HDL Ratio 2.69 10/17/20 06:12 Lipase 93 U/L (73-393) 10/16/20 23:35 Home Medications: Acarbose [Precose] 100 mg PO TID 10/17/20 Aspirin 81 mg PO DAILY 10/17/20 Celecoxib [Celebrex*] 200 mg PO DAILY 10/17/20 Duloxetine HCl 30 mg PO DAILY 10/17/20 Exenatide Microspheres [Bydureon Bcise] 2 mg SQ SEECOM 10/17/20 Leflunomide [Arava] 10 mg PO DAILY 10/17/20 Losartan Potassium [Cozaar] 25 mg PO DAILY 10/17/20 Metformin HCl [Glucophage*] 500 mg PO BIDWM 10/17/20 Omeprazole [Prilosec] 40 mg PO DAILYPRN PRN 10/17/20 Rosuvastatin Calcium 5 mg PO DAILY 10/17/20 Ubidecarenone/Vit E/Vit E Mix [Co-Enzyme Q10 100 mg Softgel] 1 each PO DAILY 10/17/20 Ciprofloxacin HCl [Cipro 500 MG Tablet] 500 mg PO BID #8 tab 10/18/20 metroNIDAZOLE [Flagyl] 500 mg PO Q8H #12 tablet 10/18/20 New Medications: Ciprofloxacin HCl [Cipro 500 MG Tablet] 500 mg PO BID #8 tab metroNIDAZOLE [Flagyl] 500 mg PO Q8H #12 tablet Diet: ADA Activity: Ad mercedes Followup: OOT,OOT [Primary Care Provider] - Darron Rudd MD [ACTIVE - CAN ADMIT] - Time spent managing pt's care (in minutes): 28
== END 2020-10-18 18:48 | disposition home or self-care (01) | DRG 390 ==
LOC: ER 22:02 → ERHOLD 10-17 02:22 → 2ND 10-17 16:36
PROVIDERS: ADMIT Internal Medicine; ATTEND Internal Medicine
DX: K56.600 Partial intestinal obstruction, unspecified as to cause (principal); I10 Essential (primary) hypertension; E11.9 Type 2 diabetes mellitus without complications; Z20.822 Contact with and (suspected) exposure to COVID-19
CPT/HCPCS: 36415; 74018; 74019; 74177; 80048; 80053; 80061; 80076; 81003; 81015; 82947; 83605; 83690; 83735; 84100; 84439; 84443; 85025; 85610; 85730; 87086; 87088; 94760; 96372; 96374; 96375; 99285; J0500; J0696; J2405; J7030; Q9967; U0003